=== PATIENT | female | born 2000 | race Two or more races ===

== ENCOUNTER 2025-03-08 09:12 | Emergency (ER) | payer OTHER ==
[~2025-03-08] VITALS: Ht 170.2 cm; Wt 49.0 kg
[2025-03-08 09:27] VITALS: BP 120/80; O2SAT 99
[2025-03-08] MEDS ORDERED: SALINE NOSE SPR45 ML NASAL (10:07)
[2025-03-08] MEDS ORDERED: CIPROFLOX-DEXA7.5 ML OT (10:15)
[2025-03-08] MEDS ORDERED: IBUPROFEN800 MG PO (10:15)
[2025-03-08] MEDS ORDERED: AMOX-CLAV 875-1 EACH PO (10:15)
== END 2025-03-08 10:48 | disposition home or self-care (01) ==
LOC: ER 10:38
DX: H61.21 Impacted cerumen, right ear (principal)